=== PATIENT | male | born 1975 | race Caucasian/White ===

== ENCOUNTER 2024-05-13 15:55 | Inpatient (IN) | payer BC, OTHER, SELFPAY ==
[~2024-05-13 15:55] MED LIST: Iopamidol 370 76% 100 ML VIAL ONE
[2024-05-13] MEDS ORDERED: fentaNYL PF 100 MCG/2 ML SYRINGE ONE ×2 (16:08→17:09)
[2024-05-13] MEDS ORDERED: Midazolam HCl 2 mg/2 ml Vial ONE (16:08)
[2024-05-13] MEDS ORDERED: Etomidate 40 MG (20 mL) VIAL ONE ×2 (16:08→16:09)
[2024-05-13] MEDS ORDERED: Vecuronium 10 MG VIAL ONE ×2 (16:09→17:28)
[2024-05-13] MEDS ORDERED: SUCCINYLCHOLINE/SOD CL,ISO/PF 200 MG/10 ML SYRINGE FS ONE (16:09)
[2024-05-13] MEDS ORDERED: PHENYLEPHRINE-NS 100 MCG/ML 10 ML SYRINGE ONE ×3 (16:09→20:11)
[2024-05-13] MEDS ORDERED: NOREPINEPHRINE 8 MG/250 ML-D5W 250 ML ONE (16:10)
[2024-05-13] MEDS ORDERED: Dexamethasone 4 mg/ml Vial ONE (16:14)
[2024-05-13] MEDS ORDERED: Bupivacaine PF 0.5% 30 ML VIAL ONE (16:14)
[2024-05-13] MEDS ORDERED: EPINEPHrine 1 MG/ML VIAL ONE (16:14)
[2024-05-13] MEDS ORDERED: Albumin 5% 500 ML ONE (16:15)
[2024-05-13] MEDS ORDERED: Nitroglycerin 50 MG/250 ML BOT ONE (16:36)
[2024-05-13] MEDS ORDERED: Papaverine 60 MG/2 ML VIAL ONE ×2 (16:36→17:11)
[2024-05-13] MEDS ORDERED: Cardioplegic Soln 1,000 ML BAG ONE (16:36)
[2024-05-13] MEDS ORDERED: Vancomycin 1 GM VIAL ONE (16:36)
[2024-05-13] MEDS ORDERED: Thrombin 5000 UNITS/5 ML VIAL ONE (16:36)
[2024-05-13] MEDS ORDERED: Heparin 5,000 UNITS/ML VIAL ONE (16:36)
[2024-05-13] MEDS ORDERED: Protamine Sulfate 250 MG/25 ML VIAL ONE (16:36)
[2024-05-13] MEDS ORDERED: Aminocaproic Acid 5 GM/20 ML VIAL ONE (16:36)
[2024-05-13] MEDS ORDERED: Magnesium 5 GM/10 ML VIAL ONE (16:36)
[2024-05-13] MEDS ORDERED: Calcium Chloride 1 GM/10 ML Abboject SYRINGE ONE (16:36)
[2024-05-13] MEDS ORDERED: Potassium Chloride 60 mEq (30 mL) VIAL ONE (16:36)
[2024-05-13] MEDS ORDERED: Lidocaine 2% PF 100 mg/5 ml Syringe ONE (16:36)
[2024-05-13] MEDS ORDERED: Mannitol 12.5 GM/50 ML ONE (16:36)
[2024-05-13] MEDS ORDERED: Heparin 30,000 units/30 ml VIAL ONE (16:36)
[2024-05-13] MEDS ORDERED: Sodium Bicarb 50 mEq/50 ML VIAL ONE (16:36)
[2024-05-13 18:48] LABS: Amphetamine Detected (NotDetected); Barbiturates Screen Not Detected (NotDetected); Benzodiazepine Screen Not Detected (NotDetected); Cocaine Metabolite Screen Not Detected (NotDetected); Methadone Not Detected (NotDetected); Methamphetamine Detected (NotDetected); Opiate Screen Detected (NotDetected); Oxycodone Screen Not Detected (NotDetected); Phencyclidine (PCP) Not Detected (NotDetected); THC/Cannabinoid Screen Not Detected (NotDetected); Tricyclic Screen Not Detected (NotDetected)
[2024-05-13] MEDS ORDERED: Amiodarone 150 MG/3 ML VIAL ONE (19:37)
[2024-05-13] MEDS ORDERED: Insulin Regular, Human 100 UNIT/ML 10 ML VIAL ONE (19:39)
[2024-05-13] MEDS ORDERED: Dextrose 50% Abboject 50 ML SYRINGE ONE (19:50)
[2024-05-13] MEDS ORDERED: Sodium Bicarb 50 MEQ/50 ML Abboject 8.4% SYRINGE ONE (19:52)
[2024-05-13] MEDS ORDERED: niCARdipine 25 MG in Sodium Chloride 0.9% 250 ML 250 ML IVPB PRN (21:17)
[2024-05-13] MEDS ORDERED: Mag-Al 1200 mg/1200 mg/30 ML UDCUP PO PRN (21:17)
[2024-05-13] MEDS ORDERED: hydrALAZINE 20 MG/ML VIAL SLOW IVP PRN (21:17)
[2024-05-13] MEDS ORDERED: Guaifenesin DM 100-10/5 ML UDCUP PO PRN (21:17)
[2024-05-13] MEDS ORDERED: Promethazine HCl 25 MG/ML VIAL IM PRN (21:17)
[2024-05-13] MEDS ORDERED: Post-Op Insulin Drip Protocol IVPB SCH (21:17)
[2024-05-13] MEDS ORDERED: Albumin 5% 12.5 GM (250 mL) BOT IVPB PRN (21:17)
[2024-05-13] MEDS ORDERED: Bisacodyl 10 MG SUPP PR PRN (21:17)
[2024-05-13] MEDS ORDERED: Ondansetron PF 4 MG/2 ML Vial IVP PRN (21:17)
[2024-05-13] MEDS ORDERED: Morphine 2 MG/ML VIAL SLOW IVP PRN (21:17)
[2024-05-13] MEDS ORDERED: Bisacodyl 5 MG TAB PO PRN (21:17)
[2024-05-13] MEDS ORDERED: fentaNYL 50 mcg/mL 1 mL Vial SLOW IVP PRN ×4 (21:17→22:05)
[2024-05-13] MEDS ORDERED: Ventilator Sedation Protocol 1 EACH FS SCH (21:30)
[2024-05-13] MEDS ORDERED: Fentanyl BOLUS 250 ML IVPB PRN (21:45)
[2024-05-13] MEDS ORDERED: Propofol BOLUS 1,000 MG/100 ML VIAL IV PRN (21:45)
[2024-05-13] MEDS ORDERED: Fentanyl CADD 100 ML IV SCH (21:45)
[2024-05-13 22:00] LABS: Actual Bicarbonate (HCO3a) 22.1 mEq/L (22-28); Base Excess (BEa) -6.5 mEq/L (-2.0 to +3.0); CO2 Tension 58.4 mmHg (35.0-45.0); Calcium, Ionized (arterial) 1.04 mmol/L (1.12-1.30); Carboxyhemoglobin (COHb) 1.3 gm% (0.0-3.0); Hematocrit-ABG 35 % (42.0-52.0); O2 Tension (PaO2), arterial 74.2 mmHg (80.0-100.0); Potassium - ABG Lab 4.44 mmol/L (3.70-5.30)
[2024-05-13] MEDS ORDERED: Insulin Regular, Human 100 UNIT/ML 10 ML VIAL SC PRN (22:00)
[2024-05-13 22:01] LABS: Puncture Site LINE; pH, Arterial 7.195 (7.35-7.45)
[2024-05-13 22:06] LABS: #Basophils 0.05 10x3/uL (0.0-0.2); %Basophils 0.3 % (0.0-1.0); %Eosinophils 0.3 % (0.0-10.0); %Lymphocytes 9.1 % (21.0-51.0); %Monocytes 6.7 % (0.0-10.0); %Neutrophils 82.7 % (42.0-75.0); Hematocrit 37.6 % (42.0-52.0); Hemoglobin 12.9 g/dL (14.0-18.0); Mean Corpuscular HGB CONC 34.3 g/dL (32.0-36.0); Mean Corpuscular Hemoglobin 33.9 pg (27.0-31.0); Mean Corpuscular Volume 98.7 fL (78.0-98.0); Mean Platelet Volume 8.9 fL (7.4-10.4); Platelet Count 174 10x3/uL (130-400); RBC Distribution Width 14.3 % (11.5-14.5); Red Blood Cell (RBC) Count 3.81 mill/uL (4.70-6.10)
[2024-05-13 22:19] LABS: INR-International Normal Ratio 1.2; Prothrombin Time 15.5 sec (12.0-14.7)
[2024-05-13 22:20] LABS: PTT 26.9 sec (22.9-36.1)
[2024-05-13 22:25] LABS: Anion Gap 9 mmol/L (10-20); BUN (Urea Nitrogen) 16 mg/dL (8.9-20.6); Calc. Creatinine Clearance 0 mL/min (70-130); Calcium 7.6 mg/dL (7.8-10.44); Carbon Dioxide 25 mmol/L (22-29); Chloride 112 mmol/L (98-107); Estimated GFR 61; Glucose 174 mg/dL (70-105); Potassium 5.1 mmol/L (3.5-5.1); Sodium 141 mmol/L (136-145)
[2024-05-13] MEDS: Lorazepam 2 MG/ML VIAL SLOW IVP PRN (23:01)
[2024-05-13] MEDS: Sodium Chloride 0.9% 1,000 ML IV SCH (23:02)
[2024-05-13] MEDS: Magnesium 2 GM/50 ML(in water) 2 GM in Premix 1 BAG IVPB SCH (23:02)
[2024-05-13] MEDS: NOREPINEPHRINE 8 MG/250 ML-D5W 250 ML IVPB PRN (23:02)
[2024-05-13] MEDS: Nitroglycerin 50 MG/250 ML BOT 250 ML IVPB PRN (23:02)
[2024-05-13] MEDS: Propofol 1,000 MG/100 ML VIAL IV PRN (23:03)
[2024-05-13] MEDS: Ipratropium/Albuterol 3 ML NEB NEB SCH (23:27)
[2024-05-14] MEDS: Albumin 5% 12.5 GM (250 mL) BOT IVPB PRN
[2024-05-14 00:05] LABS: Actual Bicarbonate (HCO3a) 21.4 mEq/L (22-28); Base Excess (BEa) -5.7 mEq/L (-2.0 to +3.0); CO2 Tension 48.1 mmHg (35.0-45.0); Carboxyhemoglobin (COHb) 0.5 gm% (0.0-3.0); Hematocrit-ABG 40 % (42.0-52.0); Hemoglobin (Hb) 13.6 g/dL (14.0-18.0); O2 Tension (PaO2), arterial 110.6 mmHg (80.0-100.0); pH, Arterial 7.266 (7.35-7.45)
[2024-05-14 00:06] LABS: ALV-art Gradient 257.075 mmHg (0-20); Puncture Site LINE
[2024-05-14] MEDS: CEFAZOLIN 2 GM in Sodium Chloride 0.9% 100 ML IVPB SCH (00:58)
[2024-05-14] MEDS: Morphine 2 MG/ML VIAL SLOW IVP PRN (00:58)
[2024-05-14 01:18] VITALS: BMI 36.2
[2024-05-14] MEDS: INSULIN REGULAR IN 0.9 % NACL 100 UNITS in Premix 1 BAG IVPB SCH (04:30)
[2024-05-14 04:40] LABS: #Basophils 0.03 10x3/uL (0.0-0.2); #Eosinphils Less than 0.03 10x3/uL (0.0-0.7); %Basophils 0.2 % (0.0-1.0); %Lymphocytes 2.9 % (21.0-51.0); %Monocytes 6.1 % (0.0-10.0); %Neutrophils 90.2 % (42.0-75.0); Hematocrit 37.7 % (42.0-52.0); Hemoglobin 12.8 g/dL (14.0-18.0); Mean Platelet Volume 9.4 fL (7.4-10.4); Platelet Count 213 10x3/uL (130-400); RBC Distribution Width 14.6 % (11.5-14.5); Red Blood Cell (RBC) Count 3.77 mill/uL (4.70-6.10)
[2024-05-14 05:09] LABS: Anion Gap 10 mmol/L (10-20); BUN (Urea Nitrogen) 15 mg/dL (8.9-20.6); Calc. Creatinine Clearance 116 mL/min (70-130); Calcium 7.6 mg/dL (7.8-10.44); Carbon Dioxide 22 mmol/L (22-29); Chloride 115 mmol/L (98-107); Estimated GFR 64; Glucose 159 mg/dL (70-105); Potassium 5.2 mmol/L (3.5-5.1); Sodium 142 mmol/L (136-145)
[2024-05-14] MEDS: Dexmedetomidine In 0.9 % NaCl 100 ML IVPB SCH (07:04)
[2024-05-14] MEDS: Magnesium 2 GM/50 ML(in water) 2 GM in Premix 1 BAG IVPB SCH (08:05)
[2024-05-14] MEDS: Aspirin Chewable 81 MG TAB PO SCH (08:05)
[2024-05-14] MEDS: Famotidine/PF 20 mg/2ml Vial SLOW IVP SCH (08:06)
[2024-05-14] MEDS: Lidocaine 4% Patch TD SCH (08:06)
[2024-05-14 08:48] LABS: Hemoglobin A1c 5.3 % (4.0-6.0)
[2024-05-14 09:09] LABS: Actual Bicarbonate (HCO3a) 21.8 mEq/L (22-28); Base Excess (BEa) -3.2 mEq/L (-2.0 to +3.0); CO2 Tension 38.6 mmHg (35.0-45.0); Calcium, Ionized (arterial) 1.08 mmol/L (1.12-1.30); Carboxyhemoglobin (COHb) 0.2 gm% (0.0-3.0); Hematocrit-ABG 38 % (42.0-52.0); Hemoglobin (Hb) 12.8 g/dL (14.0-18.0); O2 Tension (PaO2), arterial 97.2 mmHg (80.0-100.0); Potassium - ABG Lab 4.61 mmol/L (3.70-5.30); pH, Arterial 7.369 (7.35-7.45)
[2024-05-14 09:10] LABS: Cardiac Risk 5.3 (Less than 4.5)
[2024-05-14 09:44] LABS: Puncture Site Right Radial artery
[2024-05-14 11:33] VITALS: BMI 36.2
[2024-05-14] MEDS: fentaNYL 50 mcg/mL 1 mL Vial SLOW IVP PRN (16:12)
[2024-05-14] MEDS: Acetaminophen 325 MG TAB PO PRN (17:41)
[2024-05-14] MEDS: Haloperidol Lactate 5 MG/ML VIAL SLOW IVP SCH (19:17)
[2024-05-14] MEDS: Atorvastatin Calcium 20 MG TAB PO SCH (20:03)
[2024-05-14] MEDS: Famotidine 20 MG TAB PO SCH (20:03)
[2024-05-14] MEDS: Buprenorphine 2mg/Naloxone 0.5mg per 1 FILM SL SCH (20:04)
[2024-05-15 04:31] LABS: #Basophils 0.03 10x3/uL (0.0-0.2); #Eosinphils Less than 0.03 10x3/uL (0.0-0.7); %Basophils 0.2 % (0.0-1.0); %Eosinophils 0.1 % (0.0-10.0); %Lymphocytes 7.2 % (21.0-51.0); %Monocytes 7.8 % (0.0-10.0); Hematocrit 33.2 % (42.0-52.0); Hemoglobin 11.1 g/dL (14.0-18.0); Mean Corpuscular HGB CONC 33.4 g/dL (32.0-36.0); Mean Corpuscular Hemoglobin 33.6 pg (27.0-31.0); Mean Corpuscular Volume 100.6 fL (78.0-98.0); Mean Platelet Volume 9.6 fL (7.4-10.4); Platelet Count 184 10x3/uL (130-400); RBC Distribution Width 14.8 % (11.5-14.5)
[2024-05-15 05:31] LABS: Phosphorus 3.7 mg/dL (2.3-4.7)
[2024-05-15 05:45] LABS: Anion Gap 12 mmol/L (10-20); BUN (Urea Nitrogen) 18 mg/dL (8.9-20.6); Calc. Creatinine Clearance 111 mL/min (70-130); Calcium 7.4 mg/dL (7.8-10.44); Carbon Dioxide 22 mmol/L (22-29); Chloride 113 mmol/L (98-107); Estimated GFR 58; Glucose 128 mg/dL (70-105); Magnesium 2.9 mg/dL (1.6-2.6); Potassium 4.2 mmol/L (3.5-5.1); Sodium 143 mmol/L (136-145)
[2024-05-15] MEDS: Transdermal Patch Removal TOP SCH (07:05)
[2024-05-15] MEDS: Buprenorphine 8mg/Naloxone 2mg per 1 FILM SL SCH ×2 (10:22→21:34)
[2024-05-15] MEDS: fentaNYL 50 mcg/mL 1 mL Vial SLOW IVP PRN (11:40)
[2024-05-16 04:54] LABS: #Basophils Less than 0.03 10x3/uL (0.0-0.2); %Basophils 0.2 % (0.0-1.0); %Eosinophils 0.2 % (0.0-10.0); %Lymphocytes 7.1 % (21.0-51.0); %Monocytes 6.4 % (0.0-10.0); %Neutrophils 85.6 % (42.0-75.0); Hematocrit 27.8 % (42.0-52.0); Hemoglobin 9.1 g/dL (14.0-18.0); Mean Corpuscular HGB CONC 32.7 g/dL (32.0-36.0); Mean Corpuscular Hemoglobin 34.2 pg (27.0-31.0); Mean Corpuscular Volume 104.5 fL (78.0-98.0); Mean Platelet Volume 9.8 fL (7.4-10.4); Platelet Count 136 10x3/uL (130-400); RBC Distribution Width 14.6 % (11.5-14.5); Red Blood Cell (RBC) Count 2.66 mill/uL (4.70-6.10)
[2024-05-16 04:55] LABS: Anion Gap 10 mmol/L (10-20); BUN (Urea Nitrogen) 26 mg/dL (8.9-20.6); Calc. Creatinine Clearance 135 mL/min (70-130); Carbon Dioxide 19 mmol/L (22-29); Chloride 112 mmol/L (98-107); Estimated GFR 71; Glucose 109 mg/dL (70-105); Magnesium 2.6 mg/dL (1.6-2.6); Potassium 3.9 mmol/L (3.5-5.1); Sodium 137 mmol/L (136-145)
[2024-05-16] MEDS: Potassium Chloride 20 MEQ (100 mL) BAG IVPB PRN (09:00)
[2024-05-16 15:36] VITALS: BP 131/89
[2024-05-16] MEDS: Furosemide 40 MG (4 mL) VIAL SLOW IVP SCH (16:05)
[2024-05-16 16:16] VITALS: TEMP 98.7
[2024-05-16] MEDS ORDERED: Metoprolol Tartrate 25 MG TAB PO SCH (21:00)
[2024-05-17] MEDS ORDERED: Furosemide 40 MG (4 mL) VIAL SLOW IVP SCH (06:00)
== END 2024-05-16 20:20 | disposition left against medical advice (07) | DRG 232 ==
LOC: CCL 15:55 → CCU 21:17
PROVIDERS: ADMIT Internal Medicine Cardiovascular Disease; ATTEND Internal Medicine Cardiovascular Disease
PROC: 02100Z9 Bypass Coronary Artery, One Artery from Left Internal Mammary, Open Approach (ICD-10-PCS; principal; 2024-05-13)
PROC: 02703ZZ Dilation of Coronary Artery, One Artery, Percutaneous Approach (ICD-10-PCS; 2024-05-13)
PROC: 021109W Bypass Coronary Artery, Two Arteries from Aorta with Autologous Venous Tissue, Open Approach (ICD-10-PCS; 2024-05-13)
PROC: 06BQ4ZZ Excision of Left Saphenous Vein, Percutaneous Endoscopic Approach (ICD-10-PCS; 2024-05-13)
PROC: 02C03ZZ Extirpation of Matter from Coronary Artery, One Artery, Percutaneous Approach (ICD-10-PCS; 2024-05-13)
PROC: 4A023N7 Measurement of Cardiac Sampling and Pressure, Left Heart, Percutaneous Approach (ICD-10-PCS; 2024-05-13)
PROC: 5A1221Z Performance of Cardiac Output, Continuous (ICD-10-PCS; 2024-05-13)
PROC: 02L70CK Occlusion of Left Atrial Appendage with Extraluminal Device, Open Approach (ICD-10-PCS; 2024-05-13)
PROC: B2111ZZ Fluoroscopy of Multiple Coronary Arteries using Low Osmolar Contrast (ICD-10-PCS; 2024-05-13)
PROC: 4A133R1 Monitoring of Arterial Saturation, Peripheral, Percutaneous Approach (ICD-10-PCS; 2024-05-13)
PROC: 3E033XZ Introduction of Vasopressor into Peripheral Vein, Percutaneous Approach (ICD-10-PCS; 2024-05-13)
PROC: 30233J1 Transfusion of Nonautologous Serum Albumin into Peripheral Vein, Percutaneous Approach (ICD-10-PCS; 2024-05-13)
DX: I21.09 ST elevation (STEMI) myocardial infarction involving other coronary artery of anterior wall (principal); N17.9 Acute kidney failure, unspecified; E87.29 Other acidosis; I25.10 Atherosclerotic heart disease of native coronary artery without angina pectoris; I10 Essential (primary) hypertension; E78.5 Hyperlipidemia, unspecified; D72.829 Elevated white blood cell count, unspecified; F17.210 Nicotine dependence, cigarettes, uncomplicated; Z88.5 Allergy status to narcotic agent; Z79.899 Other long term (current) drug therapy
CPT/HCPCS: 36415; 36416; 36430; 36600; 71045; 80048; 80053; 80061; 80306; 82550; 82805; 83036; 83690; 83735; 84100; 84132; 84484; 85025; 85347; 85610; 85730; 86850; 86900; 86901; 92920; 92941; 92973; 93005; 93010; 93454; 93458; 93798; 94002; 94003; 94640; 96374; 96375; A4311; A4648; C1751; C1757; C1769; C1887; C1889; J0171; J0282; J0571; J0572; J0665; J1100; J1630; J1644; J1815; J1940; J2001; J2060; J2150; J2250; J2272; J2440; J2704; J2720; J3010; J3370; J3475; J3480; J3490; J7030; J7620; J7999; P9045; Q9967; S0017